=== PATIENT | female | born 1985 | race African-American/Black ===

== ENCOUNTER 2022-06-25 11:18 | Outpatient (CLI) | payer BC, OTHER ==
[2022-06-25 12:24] VITALS: BP 107/59
[2022-06-25] MEDS ORDERED: LACTATED RINGERS 500 ML IV SCH (16:30)
[2022-06-25] MEDS ORDERED: TERBUTALINE 1 MG/1 ML INJ SUB-Q ONE (17:00)
== END 2022-06-25 19:58 | disposition home or self-care (01) ==
LOC: TRG 11:18 → APU 11:19 → TRG 19:58
PROVIDERS: ATTEND Obstetrics & Gynecology Gynecology
DX: O62.9 Abnormality of forces of labor, unspecified (principal); O24.419 Gestational diabetes mellitus in pregnancy, unspecified control; O09.523 Supervision of elderly multigravida, third trimester; Z3A.36 36 weeks gestation of pregnancy
CPT/HCPCS: 59025; 82962; 96360; 96361; 96372; J3105; J7120

== ENCOUNTER 2022-06-30 11:38 | Outpatient (CLI) | payer OTHER ==
--- NOTE | 2022-06-30 14:17 | Ultrasound Report ---
ULTRASOUND OBSTETRIC LIMITED ULTRASOUND BIOPHYSICAL PROFILE INDICATION / CLINICAL INFORMATION: well being. Clinical Gestational Age (GA): 36.0 weeks.days COMPARISON: None available. FINDINGS: BREATHING MOVEMENT = 2 GROSS BODY MOVEMENT = 2 TONE = 2 QUALITATIVE AMNIOTIC FLUID VOLUME = 2 TOTAL BIOPHYSICAL SCORE = 8/8 HEART RATE (beats per minute): 143 AMNIOTIC FLUID INDEX (cm) = 20.0 (normal = 7-24 cm) PRESENTATION: Cephalic. ADDITIONAL FINDINGS: None. IMPRESSION: 1. Biophysical Score = 8/8 Signer Name: Gustavo Dewitt MD Signed: 06/30/2022 2:13 PM Workstation Name: [id number]
[2022-06-30 14:19] VITALS: BP 112/67
== END 2022-06-30 14:56 | disposition home or self-care (01) ==
LOC: TRG 11:38 → APU 11:39 → TRG 14:56
PROVIDERS: ATTEND Obstetrics & Gynecology Gynecology
DX: O36.8130 Decreased fetal movements, third trimester, not applicable or unspecified (principal); Z3A.36 36 weeks gestation of pregnancy
CPT/HCPCS: 59025; 76815; 76819

== ENCOUNTER 2022-07-08 11:31 | Outpatient (CLI) | payer OTHER ==
[2022-07-08 12:12] VITALS: BP 99/61
--- NOTE | 2022-07-08 13:43 | Ultrasound Report ---
ULTRASOUND OBSTETRIC LIMITED INDICATION / CLINICAL INFORMATION: Well Being; BPP 7 MELODY. Clinical Gestational Age (GA) in weeks, days: 37, 4 TECHNIQUE: Transabdominal. COMPARISON: 06/30/2022 FINDINGS: HEART RATE (beats per minute): 152 AMNIOTIC FLUID INDEX (cm) = 13.5 (normal = 7-24 cm) PRESENTATION: Cephalic. ADDITIONAL FINDINGS: None. IMPRESSION: 1. No significant abnormality. Signer Name: Marco Antonio Elliott MD Signed: 07/08/2022 1:38 PM Workstation Name: [id number]
--- NOTE | 2022-07-08 13:50 | Ultrasound Report ---
ULTRASOUND OBSTETRIC LIMITED ULTRASOUND BIOPHYSICAL PROFILE INDICATION / CLINICAL INFORMATION: Evaluate well-being. COMPARISON: Limited OB ultrasound performed on 06/30/2022. FINDINGS: BREATHING MOVEMENT = 2 GROSS BODY MOVEMENT = 2 TONE = 2 QUALITATIVE AMNIOTIC FLUID VOLUME = 2 TOTAL BIOPHYSICAL SCORE = 8/8 AMNIOTIC FLUID INDEX (cm) = 13.5 PRESENTATION: Cephalic. HEART RATE (beats per minute): 152 ADDITIONAL FINDINGS: None. IMPRESSION: 1. Biophysical Score = 8/8 Signer Name: Americo Greenwood MD Signed: 07/08/2022 1:46 PM Workstation Name: [id number]
[2022-07-08] MEDS ORDERED: hydrOXYzine HCL 100 MG/2 ML INJ IM ONE (14:29)
== END 2022-07-08 14:43 | disposition home or self-care (01) ==
LOC: TRG 11:31 → APU 11:55 → TRG 14:43
PROVIDERS: ATTEND Obstetrics & Gynecology Gynecology
DX: Z34.93 Encounter for supervision of normal pregnancy, unspecified, third trimester (principal); Z3A.37 37 weeks gestation of pregnancy
CPT/HCPCS: 59025; 76815; 76819

== ENCOUNTER 2022-07-15 05:21 | Inpatient (IN) | payer OTHER ==
[2022-07-15] MEDS ORDERED: METOCLOPRAMIDE 10 MG/2 ML INJ IV ONE (06:03)
[2022-07-15] MEDS ORDERED: FAMOTIDINE 20 MG/2 ML INJ IV ONE ×2 (06:03→14:35)
[2022-07-15] MEDS ORDERED: BICITRA ORAL LIQD 30ML PO ONE (06:03)
--- NOTE | 2022-07-15 06:06 | History and Physical Report ---
History of Present Illness Date of examination: 07/15/22 Date of admission: 07/15/2022 Chief complaint: Contractions History of present illness: 36-year-old at 38-1/7 weeks gestation presented to OB triage via EMS with regular and painful contractions every 1 to 3 minutes apart. There is no vaginal bleeding. There is no leaking fluid. There is good movement. The patient has a history of 3 previous deliveries. She desires a repeat delivery with a bilateral tubal ligation. In addition, the patient has gestational diabetes mellitus A2. She takes insulin 4 times a day. Fasting and 2-hour postprandial glucoses are suboptima lly controlled. Hemoglobin A1c is 7.6 today. According the record, the estimated weight is >90th percentile. Past History Past Medical History: diabetes (Gestational diabetes A2), other (Hepatitis B chronic carrier, varicella nonimmune) Past Surgical History: section ( section x3) Family/Genetic History: none Social history: no significant social history - Obstetrical History Expected Date of Delivery: 07/28/22 Actual Gestation: 38 Week(s) 1 Day(s) : 4 Para: 3 Hx # Term Pregnancies: 3 Number of Pregnancies: 0 Spontaneous Abortions: 0 Induced : 0 Number of Living Children: 3 Medications and Allergies Allergies Allergy/AdvReac Type Severity Reaction Status Date / Time No Known Allergies Allergy Verified 07/08/22 12:38 Review of Systems All systems: negative - Vital Signs Vital signs: Vital Signs Pulse Pulse Ox 85 98 07/15/22 05:36 07/15/22 05:36 Temp Pulse Resp BP Pulse Ox 97.8 F 84 16 103/58 99 07/15/22 05:40 07/15/22 06:01 07/15/22 05:40 07/15/22 05:37 07/15/22 06:01 - Physical Exam Breasts: Positive: normal Cardiovascular: Regular rate Lungs: Positive: Normal air movement Abdomen: Positive: normal appearance Genitourinary (Female): Positive: normal external genitalia, normal perenium Vulva: both: normal Vagina: Positive: normal moisture Cervix: Positive: lesion Uterus: Positive: enlarged Adnexa: both: normal Anus/Rectum: Positive: normal perianal skin Extremities: Positive: normal Deep Tendon Reflex Grade: Normal +2 - Obstetrical FHR: category 1 Uterine Contraction Monitor Mode: External Cervical Dilatation: 0.5 Cervical Effacement Percentage: 20 station: -4 Uterine Contraction Frequency (min): 3 Uterine Contraction Pattern: Regular Results Result Diagrams: 07/15/22 06:25 Hemoglobin A1c= 7.6. Accucheck= 86 Ultrasound: pending, report reviewed, image reviewed, other (OB Ultrasound Limited= SLIUP. Vertex. Left fundal placenta. EFW= 3472 g (37th %-ile). MELODY= 19.3 cm.) Assessment and Plan - Patient Problems (1) 38 weeks gestation of Current Visit: Yes Status: Acute Plan to address problem: care is up-to-date at [facility]. 1 hour glucose tolerance test= 233. The patient is GBS negative. (2) Previous delivery, antepartum Current Visit: Yes Status: Acute Plan to address problem: Patient had 3 previous deliveries. Plan is repeat delivery with bilateral tubal ligation. (3) Insulin controlled gestational diabetes mellitus in third trimester Current Visit: Yes Status: Acute Plan to address problem: The patient is on 4 times a day insulin. She is followed by MFM. According to the record, fasting and 2-hour postprandial glucoses are not optimally controlled. There may be noncompliance or nonadherence on the patient's part as well. This notion is also supported by the Hemoglobin A1c= 7.6. Hence, at this gestational age, delivery is medically indicated secondary to poorly controlled gestational diabetes mellitus A2. (4) Large for gestational age fetus affecting mother, antepartum, third trimester, single gestation Current Visit: Yes Status: Acute Plan to address problem: According the record, there is a least 1 ultrasound that revealed that the estimated weight was >90th %ile. The patient's gestational diabetes mellitus A2 may be The patient seen by MFM. Ultrasound for estimated weight is ordered and is pending. (5) Hepatitis B, chronic Current Visit: Yes Status: Acute Plan to address problem: The patient is a chronic carrier of hepatitis B. This is likely secondary to her living in [place] for a majority of her life. (6) AMA (advanced maternal age) multigravida 35+ Current Visit: Yes Status: Acute Plan to address problem: NIPT is low-risk for aneuploidy. The patient was seen by maternal- medicine. (7) Multiparity Current Visit: Yes Status: Acute Plan to address problem: The patient desires a bilateral tubal ligation.
[2022-07-15] MEDS ORDERED: LACTATED RINGERS 1,000 ML IV SCH ×3 (06:15→15:00)
[2022-07-15 06:40] LABS: Basophils % (Auto) 0.4 % (0.0-1.8); Eosinophils # (Auto) 0.2 K/mm3 (0.0-0.4); Eosinophils % (Auto) 2.6 % (0.0-4.3); Hematocrit 32.2 % (30.3-42.9); Hemoglobin 10.3 gm/dl (10.1-14.3); Lymphocytes # (Auto) 1.7 K/mm3 (1.2-5.4); Mean Corpuscular HGB Conc 32 % (30-34); Mean Corpuscular Volume 72 fl (79-97); Monocytes # (Auto) 1.1 K/mm3 (0.0-0.8); Monocytes % (Auto) 11.8 % (0.0-7.3); Platelet Count 243 K/mm3 (140-440); Red Blood Count 4.45 M/mm3 (3.65-5.03); Red Cell Distribution Width 18.5 % (13.2-15.2)
[2022-07-15] MEDS ORDERED: OXYTOCIN DRIP 30 UNITS/500 ML BAG IV SCH ×3 (07:00→18:00)
[2022-07-15] MEDS ORDERED: ceFAZolin/Water 2 GM/20 ML 2 GM/20 ML SYRINGE IV NR ×2 (07:00→15:00)
--- NOTE | 2022-07-15 07:46 | Ultrasound Report ---
ULTRASOUND OBSTETRIC COMPLETE INDICATION / CLINICAL INFORMATION: Previous x3, Early labor. Clinical Gestational Age (GA) in weeks.days: 40.0 TECHNIQUE: Transabdominal. COMPARISON: 07/08/2022 FINDINGS: NUMBER: Single PRESENTATION: cephalic PLACENTA: Fundal, left lateral, grade one and free of the os. MATERNAL ADNEXA: No significant abnormality. AMNIOTIC FLUID VOLUME: normal AMNIOTIC FLUID INDEX (MELODY) in cm (if measured): 19.3 ANATOMY: anatomical survey was not performed. MEASUREMENTS: - Biparietal Diameter = 9.2 cm = 37.3 weeks.days - Head Circumference = 33.3 cm = 38.0 weeks.days - Abdominal Circumference = 35.8 cm = 39.5 weeks.days - Femur Length = 6.9 cm = 35.4 weeks.days - Estimated Weight (in grams, if calculated): 3472 - Heart Rate (beats per minute): 124 ADDITIONAL FINDINGS: Lower uterine segment wall thickness measures 14 mm anteriorly and 11 mm posteri alex. PERCENTILE ESTIMATED WEIGHT (if calculated): 37 AVERAGE ULTRASOUND AGE (AUA) in weeks.days = 37.5 IMPRESSION: 1. Single intrauterine with AUA of 37.5 weeks.days 2. No acute abnormality is detected. Signer Name: Иван Russo Jr, MD Signed: 07/15/2022 7:42 AM Workstation Name: [id number]
[2022-07-15] MEDS ORDERED: BUTORPHANOL 2 MG/1 ML INJ IV NR (08:26)
[2022-07-15 10:39] LABS: Alanine Aminotransferase 43 units/L (7-56); Albumin 3.1 g/dL (3.9-5); Blood Urea Nitrogen 7 mg/dL (7-17); Calcium 8.6 mg/dL (8.4-10.2); Hemolysis Index 2
[2022-07-15 11:23] LABS: BUN/Creatinine Ratio 14
[2022-07-15] MEDS ORDERED: ePHEDrine SULFATE 50 MG/1 ML INJ ONE ×2 (11:39→15:42)
[2022-07-15] MEDS ORDERED: BUTORPHANOL 2 MG/1 ML INJ IV ONE (12:00)
--- NOTE | 2022-07-15 12:55 | Anesthesia Day of Surgery ---
Anesthesia Day of Surgery - Day of Surgery Patient Examined: Yes Patient H&P Reviewed: Yes Patient is NPO: Yes
--- NOTE | 2022-07-15 12:55 | Anesthesia Consultation ---
Anesthesia Consult and Med Hx Date of service: 07/15/22 - Airway Anesthetic Teeth Evaluation: Good ROM Head & Neck: Adequate Mental/Hyoid Distance: Adequate Mallampati Class: Class II Intubation Access Assessment: Probably Good - Pulmonary Exam CTA: Yes - Cardiac Exam Cardiac Exam: RRR - Pre-Operative Health Status ASA Pre-Surgery Classification: ASA3 Proposed Anesthetic Plan: Epidural Nerve Block: TAP block - Pulmonary Hx Smoking: No - Cardiovascular System Hx Hypertension: No - Central Nervous System Hx Seizures: No CVA: No Hx Psychiatric Problems: No - Endocrine Hx Renal Disease: No Hx Liver Disease: No Hx Insulin Dependent Diabetes: Yes (gestational) Hx Thyroid Disease: No - Other Systems Hx Alcohol Use: No Hx Substance Use: No Hx Cancer: No Hx Obesity: No - Additional Comments Anesthesia Medical History Comments: no hx of anesthetic complications
--- NOTE | 2022-07-15 12:57 | Progress Note ---
Labor Epidural - Labor Epidural Start Time: 11:52 Stop Time: 12:07 Performed by:: LAURENCE CISNEROS (kaela/ Bre TATUM) Procedure: Epidural Requested for Labor Pain. H&P and PT Chart reviewed and consent obtained. Time out performed and the procedure was explained, all questions answered. Patient was placed in a sitting position with monitors applied. The PTs back was prepped and draped in usual sterile fashion. The Skin was local ized with 3 mL of 1% lidocaine at L3-L4. A 17-gauge Touhy epidural needle was advanced to MALIKA with saline at 6 cm and no blood/CSF was noted via epidural needle. Epidural catheter was advanced to 12 cm. There was negative aspiration for blood and CSF in the catheter and negative response to a test dose of 3 ml 1.5% lidocaine w/ Epi and a sterile dressing was applied Patient tolerated the procedure well and there were no immediate complications noted.
[2022-07-15] MEDS ORDERED: TERBUTALINE 1 MG/1 ML INJ SUB-Q PRN (13:16)
[2022-07-15] MEDS ORDERED: METHYLERGONOVINE MALEATE 0.2 MG/ML VIAL IM PRN (13:16)
[2022-07-15] MEDS ORDERED: CARBOPROST TROMETHAMINE 250 MCG/1 ML INJ IM PRN (13:16)
[2022-07-15] MEDS ORDERED: MINERAL OIL 30 ML ORAL LIQD PO PRN (13:16)
[2022-07-15] MEDS ORDERED: LOPERAMIDE 2 MG CAP PO PRN (13:16)
[2022-07-15] MEDS ORDERED: OXYTOCIN 10 UNIT/1 ML INJ IM PRN (13:16)
[2022-07-15] MEDS ORDERED: LIDOCAINE (2%) 20 MG/1 ML VIAL 20 ML MDV INFILTRATI ONE (13:16)
[2022-07-15] MEDS ORDERED: ePHEDrine SULFATE 50 MG/1 ML INJ IV PRN (13:16)
[2022-07-15] MEDS ORDERED: miSOPROStol 200 MCG TAB PR PRN (13:27)
[2022-07-15] MEDS ORDERED: METOCLOPRAMIDE 10 MG/2 ML INJ IV SCH (14:00)
[2022-07-15] MEDS ORDERED: BICITRA ORAL LIQD 30ML PO SCH (14:00)
[2022-07-15] MEDS ORDERED: METOCLOPRAMIDE 10 MG/2 ML INJ ONE (14:35)
[2022-07-15] MEDS ORDERED: ceFAZolin/Water 2 GM/20 ML 2 GM/20 ML SYRINGE IV ONE (14:35)
[2022-07-15] MEDS ORDERED: BICITRA ORAL LIQD 30ML ONE (14:35)
[2022-07-15] MEDS ORDERED: FAMOTIDINE 20 MG/2 ML INJ IV SCH (15:00)
[2022-07-15] MEDS ORDERED: SODIUM CHLORIDE 0.9% IRR 1,500 ML BOTTLE IR ONE (15:05)
[2022-07-15] MEDS ORDERED: WATER FOR IRRIG STERILE 1,500 ML BOTTLE IR ONE (15:05)
[2022-07-15] MEDS ORDERED: PHENYLEPHRINE/NS 1,000 MCG/10 ML SYRINGE (OR USE) IV ONE (15:42)
[2022-07-15] MEDS ORDERED: ONDANSETRON 4 MG/2 ML INJ ONE (15:42)
[2022-07-15] MEDS ORDERED: BUPIVACAINE/PF (0.5%) 5 MG/1 ML 30 ML VIAL INFILTRATI ONE (15:55)
[2022-07-15] MEDS ORDERED: LIDOCAINE PF 100 MG/5 ML (CARDIAC SYRINGE) IV ONE (15:55)
[2022-07-15] MEDS ORDERED: fentaNYL 100 MCG/2 ML INJ ONE ×2 (16:18→16:31)
--- NOTE | 2022-07-15 17:22 | Operative Report ---
Operative Report Operative Report: Date of surgery: July 15, 2020 Preoperative diagnoses: 38+1 weeks gestation, 3 previous sections, peritoneal adhesions, gestational diabetes, request for tubal sterilization Postoperative diagnoses: The same. Operation: Lower segment transverse delivery, lysis of adhesions, bilateral salpingectomy Surgeon:Tita Stroud MD Stamp Clerk: Fidel Demarco CRNA Anesthesia: Spinal block Estimated blood loss: 1200 mL Complications: None Findings: Live baby boy 9 pounds 4 ounces, Apgars 8/9. The right ovary and fallopian tube were grossly normal. The fimbrial aspect of the left fallopian tube was adherent to the posterior aspect of the uterus. The left ovary was similarly adherent to the posterior aspect of the uterus. There was a band of greater omentum adherent to the right anterior aspect of the uterus. The left ovary was distended by an old hemorrhagic cyst. Procedure in detail: The patient was taken to the operating room and had an existing epidural block. Patient was placed in the straight supine position and a Desir catheter was inserted. The patient was prepped in the abdomen. The drapes were placed. A timeout was done. With the go ahead from the olap developer, a Pfannenstiel incision was made. This incision was carried across the subcutaneous layer to the fascia which was also divided transversely. The recti abdominis muscle flaps were stripped from the fascia using a combination of blunt and sharp dissections. The muscles were in the midline to gain access to the anterior parietal peritoneum which was divided after excluding any underlying viscera. The access to the peritoneal cavity was then widened by manual stretching. The bladder blade was applied. The utero vesicle peritoneal flap was divided transversely allowing the bladder to be displaced caudally. The uterine incision was placed in the lower segment transversely. The uterine incision was carried to the decidual layer. The uterine incision was extended on both sides using the bandage scissors. The amniotic sac was ruptured with clear fluid. The head was l ifted out of the false maternal pelvis and delivered through the incision using fundal pressure combined with traction using the Kiwi. The airways were bulb suctioned beginning with the mouth. Continuing fundal pressure combined with traction on the mandibular processes of the jaw delivered the rest of the baby. The umbilical cord was double clamped and divided. The baby was carefully transferred to the pediatric team. The placenta was manually removed from the uterine cavity. The uterine cavity was explored and was empty of any placental remnants. The uterine incision was repaired in 2 layers with #1 Vicryl. The surgical line on the uterus was hemostatic. All the adhesions described under the findings were appropriately divided using combination of cauterization and sutures to achieve hemostatic dejesus. Surgicel was applied to the edge of the hemorrhagic cyst in the left ovary. Both fallopian tubes were excised from the fimbrial to the cornual aspect after securing pedicles of the mesosalpinges with 2-0 Vicryl. Hemostasis was satisfactory. Blood and clots were cleared from the peritoneal cavity. The anterior parietal peritoneum was repaired with #1 Vicryl. The fascia was repaired with #1 Vicryl. The subcutaneous layer was made hemostatic using the Bovie before the skin was closed subcuticularly with 4-0 Vicryl. There were no complications. The estimated blood loss was 1200 mL. All sponges and instrument counts were correct. Patient was safely transferred to the recovery room.
[2022-07-15] MEDS ORDERED: PROMETHAZINE 25 MG TAB PO PRN (17:38)
[2022-07-15] MEDS ORDERED: MORPHINE 4 MG/1 ML INJ IV PRN ×2 (17:38→18:00)
[2022-07-15] MEDS ORDERED: diphenhydrAMINE 50 MG/ML VIAL IV PRN (17:38)
[2022-07-15] MEDS ORDERED: PROMETHAZINE 25 MG RECT SUPP PR PRN ×2 (17:38→18:00)
[2022-07-15] MEDS ORDERED: HYDROmorphone 1 MG/1 ML INJ IV PRN (17:38)
[2022-07-15] MEDS ORDERED: ONDANSETRON 4 MG/2 ML INJ IV PRN ×2 (17:38→18:00)
[2022-07-15] MEDS ORDERED: NALOXONE 0.4 MG/1 ML INJ IV PRN ×2 (17:38→18:00)
--- NOTE | 2022-07-15 17:40 | Progress Note ---
Regional Anesthesia Block - Regional Anesthesia Block Start Time: 17:20 Stop Time: 17:26 Performed By:: MALA SEGOVIA Procedure: . After Pts C/S was completed a time out was performed prior to the start of the procedure. The Trans Abdominal Plane was identified bilaterally via ultrasound. The skin was prepped bilaterally with chlorhexidine and a 22g stimuplex needle was advanced to the area between the internal oblique muscle a nd the trans abdominal plane. Marcaine 0.25% 30mlwas injected under ultrasound guidance on the left and right side. Negative aspiration every 5mL, There was no change in the patients heart rate or rhythm and the patient tolerated the procedure well. No apparent complications were observed.
[2022-07-15] MEDS ORDERED: WITCH HAZEL/ GLYCERIN PAD TP PRN (18:00)
[2022-07-15] MEDS ORDERED: fentaNYL-BUPIV 2 MCG/ML-0.125% 200 MCG/100 ML BAG EPIDURAL SCH (18:00)
[2022-07-15] MEDS ORDERED: IBUPROFEN 600 MG TAB PO PRN (18:00)
[2022-07-15] MEDS ORDERED: ACETAMINOPHEN 325 MG TAB PO PRN (18:00)
[2022-07-15] MEDS ORDERED: IBUPROFEN 800 MG TAB PO PRN (18:00)
[2022-07-15] MEDS ORDERED: MORPHINE 2 MG/1 ML INJ IV PRN (18:00)
[2022-07-15] MEDS ORDERED: LANOLIN/ZINC/DIMETHICONE (LANSINOH) 7 GM TP PRN (18:00)
[2022-07-15] MEDS ORDERED: KETOROLAC 30 MG/1 ML INJ IV PRN (18:00)
[2022-07-15 20:09] LABS: Eosinophils % (Auto) 0.2 % (0.0-4.3); Hematocrit 29.5 % (30.3-42.9); Hemoglobin 9.3 gm/dl (10.1-14.3); Lymphocytes # (Auto) 1.2 K/mm3 (1.2-5.4); Lymphocytes % (Auto) 8.3 % (13.4-35.0); Mean Corpuscular HGB Conc 31 % (30-34); Mean Corpuscular Volume 73 fl (79-97); Monocytes # (Auto) 1.2 K/mm3 (0.0-0.8); Monocytes % (Auto) 8.1 % (0.0-7.3); Platelet Count 223 K/mm3 (140-440); Red Blood Count 4.03 M/mm3 (3.65-5.03); Red Cell Distribution Width 18.2 % (13.2-15.2)
[2022-07-15] MEDS ORDERED: MAGNESIUM HYDROXIDE (MOM) ORAL LIQD UDC PO PRN (22:00)
[2022-07-16] MEDS: KETOROLAC 30 MG/1 ML INJ IV PRN ×3 (01:03→15:55)
[2022-07-16] MEDS: ceFAZolin/NS 1 GM/50 ML 1 GM/50 ML BAG IV SCH ×2 (01:06→10:00)
[2022-07-16] MEDS ORDERED: LACTATED RINGERS 1,000 ML IV SCH (01:15)
[2022-07-16 05:22] LABS: Hematocrit 27.2 % (30.3-42.9); Hemoglobin 8.5 gm/dl (10.1-14.3)
[2022-07-16] MEDS: HYDROmorphone 1 MG/1 ML INJ IV PRN ×2 (05:22→13:17)
--- NOTE | 2022-07-16 06:06 | Post Anesthesia Evaluation ---
- Post Anesthesia Evaluation Patient Participated: No Airway Patent: Yes Stable Respiratory Function: Yes Nausea/Vomiting: No Temp > 96.8F: Yes Pain Manageable: Yes Adequeate Hydration: Yes Anesthesia Complications: No Block Receding Appropriately: Yes Patient on Ventilator: No
[2022-07-16] MEDS ORDERED: ceFAZolin/NS 1 GM/50 ML 1 GM/50 ML BAG IV ONE (10:00)
[2022-07-16] MEDS ORDERED: PRENATAL VIT27-FE FUMARATE-FOLIC ACID VIT TAB PO SCH (10:00)
[2022-07-16] MEDS ORDERED: IRON DEXTRAN COMPLEX 100 MG/2 ML INJ IM SCH (11:00)
--- NOTE | 2022-07-16 13:51 | Progress Note ---
Assessment and Plan A: POD #1 Asymptomatic Anemia Negative Flatus GDM A2 (insulin) P: Follow Routine PostOp Orders Infed 100mg IM x1 dose GDM Diet Accuchecks after meals Encourage increased ambulation Subjective - Subjective Date of service: 07/16/22 Patient reports: appetite normal, voiding normally, pain well controlled, ambulating normally [place]: doing well, bottle feeding Objective - Vital Signs Latest vital signs: Vital Signs Temp Pulse Resp BP BP Pulse Ox Pulse Ox 07/16/22 12:09 97.7 F 80 16 108/63 97 07/16/22 08:03 97.7 F 85 18 108/53 98 07/16/22 05:52 18 07/16/22 05:22 18 07/16/22 03:55 98.2 F 75 18 127/66 98 07/16/22 00:06 98.0 F 89 18 128/68 98 07/15/22 22:10 16 07/15/22 21:40 18 07/15/22 20:50 99 F 83 18 125/61 100 07/15/22 19:40 98 07/15/22 18:45 98.2 F 90 18 111/42 07/15/22 18:20 98.2 F 90 19 121/55 98 07/15/22 18:05 90 19 117/70 100 07/15/22 17:50 90 21 111/67 100 07/15/22 17:30 84 20 116/69 100 07/15/22 17:25 984 F H 84 15 112/73 100 07/15/22 14:48 92 H 98 07/15/22 14:45 100 H 106/51 07/15/22 14:43 105 H 97 07/15/22 14:38 96 H 97 07/15/22 14:33 92 H 96 07/15/22 14:29 88 96/54 07/15/22 14:28 94 H 98 07/15/22 14:23 89 98 07/15/22 14:18 78 97 07/15/22 14:14 93 H 90/55 07/15/22 14:13 91 H 97 07/15/22 14:08 102 H 97 07/15/22 14:03 87 97 07/15/22 14:00 91 H 95/56 07/15/22 13:58 104 H 98 07/15/22 13:53 96 H 98 Intake and Output 07/15/22 07/16/22 07/16/22 22:59 06:59 14:59 Intake Total 2700 290 Output Total 200 900 330 Balance 2500 -610 -330 Intake: IV 2700 50 ANCEF/NS 1 GM/50 ML 1 gm 50 In 50 ml @ 100 mls/hr IV Q8H [facility] Rx#:[id number] Oral 240 Output: Urine 200 900 330 Indwelling Catheter 900 Void 330 Other: Total, Intake Amount 240 Total, Output Amount 400 330 # Voids Void 1 Estimated Blood Loss 1,700 - Exam Breasts: Present: normal Cardiovascular: Present: Regular rate Lungs: Present: Clear to auscultation, Normal air movement Abdomen: Present: normal appearance, soft, normal bowel sounds Uterus: Present: normal, firm, fundal height below umbilicus Extremities: Present: normal Incision: Present: dry, dressed - Labs Labs: Abnormal lab results 07/15/22 07/16/22 Range/Units 19:29 03:31 WBC 15.1 H (4.5-11.0) K/mm3 Hgb 9.3 L 8.5 L (10.1-14.3) gm/dl Hct 29.5 L 27.2 L (30.3-42.9) % MCV 73 L (79-97) fl MCH 23 L (28-32) pg RDW 18.2 H (13.2-15.2) % Lymph % (Auto) 8.3 L (13.4-35.0) % Boyle % (Auto) 8.1 H (0.0-7.3) % Boyle # (Auto) 1.2 H (0.0-0.8) K/mm3 Seg Neutrophils % 83.4 H (40.0-70.0) % Seg Neutrophils # 12.5 H (1.8-7.7) K/mm3
[2022-07-17] MEDS: HYDROcodone/ACETAMINOPHEN 5-325 MG TAB PO PRN ×2 (06:49→16:15)
--- NOTE | 2022-07-17 14:39 | Progress Note ---
Assessment and Plan POD #2 A: S/P Repeat LTCS GDM (A2) Chronic Hep B carrier Varicella NI S/P PPH Asymptomatic anemia p: Continue routine pp orders Repeat cbc today Cont accuchecks after meals D/C home within 24 hours if stable Subjective - Subjective Date of service: 07/17/22 Principal diagnosis: S/P Repeat LTCS Patient reports: appetite normal, voiding normally, pain well controlled, flatus, ambulating normally [place]: doing well, bottle feeding Objective - Vital Signs Latest vital signs: Vital Signs Temp Pulse Resp BP Pulse Ox Pulse Ox 07/17/22 08:20 98.2 F 86 20 112/50 97 07/17/22 07:49 20 07/17/22 06:49 20 07/17/22 03:00 98.7 F 104 H 18 132/79 98 07/16/22 20:00 100 07/16/22 16:37 98.2 F 86 16 106/47 97 Intake and Output 07/16/22 07/17/22 07/17/22 22:59 06:59 14:59 Intake Total 360 240 240 Balance 360 240 240 Intake: Oral 240 Intake, Free Water 360 240 Other: Total, Intake Amount 120 # Voids Void 3 3 1 - Exam Breasts: Present: normal Abdomen: Present: normal appearance, soft, normal bowel sounds Vulva: both: normal Uterus: Present: normal, firm, fundal height below umbilicus Extremities: Present: normal Incision: Present: normal, intact - Labs Labs: Abnormal lab results 07/16/22 07/16/22 Range/Units 08:27 14:48 POC Glucose 58 L 41 L (70-105) mg/dL
[2022-07-17 16:43] VITALS: BP 107/62
--- NOTE | 2022-07-17 17:15 | Discharge Summary ---
Providers - Providers Date of Admission: 07/15/22 13:17 Date of discharge: 07/17/22 Attending physician: MÓNICA LAN MD Primary care physician: MÓNICA LAN MD Hospitalization Reason for admission: section Delivery: Procedure: repeat low transverse Episiotomy: none Laceration: none Incision: normal, dry, intact Other procedures: none Discharge diagnosis: IUP at term delivered baby: male Hospital course: Pt arrived at [facility] with c/o uc. She was admitted for a repeat LTCS. She received Fe r/t asymptomatic anemia and was d/c'd home on day 2 in stable condition per her request. See h&P, delivery summary, and pp notes. Condition at discharge: Stable Disposition: 01 HOME / SELF CARE / HOMELESS Plan - Discharge Medications Prescriptions: Ferrous Sulfate [Feosol 325 MG tab] 325 mg PO BID #30 tablet Ibuprofen [Motrin 600 MG tab] 600 mg PO Q6H PRN #20 tablet PRN Reason: Pain, Mild (1-3) Acetaminophen/Codeine [Tylenol /Codeine # 3 tab] 1 tab PO Q6H PRN #14 tab PRN Reason: Pain, Moderate (4-6) - Provider Discharge Summary Activity: routine, no sex for 6 weeks, no heavy lifting 4 weeks, no strenuous exercise Diet: routine Instructions: routine Additional instructions: [] Smoking cessation referral if applicable(refer to patient education folder for contact #) [] Refer to [facility]'s [facility] Booklet Call your doctor immediately for: * Fever > 100.5 * Heavy vaginal bleeding ( >1 pad per hour) * Severe persistent headache * Shortness of breath * Reddened, hot, painful area to leg or breast * Drainage or odor from incision. * Keep incision clean and dry at all times and follow doctor's instructions regarding bathing/showering - Follow up plan Follow up: MÓNICA LAN MD [Primary Care Provider] - 14 Days
[2022-07-17 18:24] LABS: Hematocrit 26.3 % (30.3-42.9); Hemoglobin 8.2 gm/dl (10.1-14.3); Mean Corpuscular HGB Conc 31 % (30-34); Mean Corpuscular Volume 74 fl (79-97); Platelet Count 256 K/mm3 (140-440); Red Blood Count 3.56 M/mm3 (3.65-5.03); Red Cell Distribution Width 18.7 % (13.2-15.2)
[2022-07-17 20:40] LABS: Basophils % (Manual) 0 % (0.0-1.8); Hypochromasia 1+; Platelet Estimate Consistent w Auto; Total Cells Counted 100
[2022-07-17] MEDS ORDERED: FERROUS SULFATE 325 MG TAB PO SCH (22:00)
== END 2022-07-17 23:51 | disposition home or self-care (01) | DRG 784 ==
LOC: TRG 05:21 → APU 05:22 → TRG 13:17 → APU 13:17 → OB 18:28
PROVIDERS: ADMIT Obstetrics & Gynecology Gynecology; ATTEND Obstetrics & Gynecology Gynecology
PROC: 10D00Z1 Extraction of Products of Conception, Low, Open Approach (ICD-10-PCS; principal; 2022-07-15)
PROC: 0UB70ZZ Excision of Bilateral Fallopian Tubes, Open Approach (ICD-10-PCS; 2022-07-15)
PROC: 0DNW0ZZ Release Peritoneum, Open Approach (ICD-10-PCS; 2022-07-15)
DX: O24.424 Gestational diabetes mellitus in childbirth, insulin controlled (principal); B18.1 Chronic viral hepatitis B without delta-agent; O98.42 Viral hepatitis complicating childbirth; Z20.822 Contact with and (suspected) exposure to COVID-19; O99.62 Diseases of the digestive system complicating childbirth; K66.0 Peritoneal adhesions (postprocedural) (postinfection); Z3A.38 38 weeks gestation of pregnancy; Z37.0 Single live birth; Z30.2 Encounter for sterilization; O34.211 Maternal care for low transverse scar from previous cesarean delivery
CPT/HCPCS: 36415; 76816; 80053; 82962; 83036; 85007; 85014; 85018; 85025; 86850; 86900; 86901; 88302; G0378; J3490; J0595; J0690; J1170; J1750; J1885; J2001; J2270; J2370; J2405; J2765; J3010; J7120; U0003